=== PATIENT | male | born 1950 | race Caucasian/White ===

== ENCOUNTER 2017-07-31 06:54 | Emergency (ER) | payer OTHER ==
[~2017-07-31] VITALS: Ht 185.4 cm; Wt 100.0 kg
[~2017-07-31 06:54] MED LIST: 1-ME1LIQ PO; ALPR-138 PO; CYCL-36 PO; METO25CR PO; PRAD150C PO
[2017-07-31 07:00] VITALS: BP 182/99; PULSE 80; RESP 16; TEMP 98.6; O2SAT 96
[2017-07-31] MEDS ORDERED: SERT25TA83 PO (07:20)
[2017-07-31] MEDS ORDERED: ASPI-183 PO (07:20)
[2017-07-31] MEDS ORDERED: METO1TAB42 PO (07:20)
--- NOTE | 2017-07-31 07:20 | PD ---
HPI Chief Complaint: Nosebleed Time Seen by Provider: 07:09 Travel History International Travel<30 days: No Contact w/Intl Traveler<30days: No Traveled to known affect area: No History of Present Illness HPI 66-year-old male complains of nosebleed. Patient states that and nosebleed started this morning. Patient has history of recurrent nosebleeds in the past. Patient was seen by ENT in the past for nosebleed. Patient states that he did not have any cauterization procedure or nose packing in the past. Patient states that the nosebleed stopped spontaneously after a few minutes in the past. Patient has history of atrial fibrillation and on aspirin 325 mg daily. Patient has history hypertension. Patient denies any recent injury to the nose. Patient denies any headache. Patient denies any chest pain or shortness of breath. Patient denies abdominal pain. PFSH Past Medical History Hx Anticoagulant Therapy: Yes (ASA 325MG DAILY) Atrial Fibrillation: Yes Cardiovascular Problems: Yes (A-FIB) Social History Alcohol Use: No Tobacco Use: No Substance Use: No Allergies-Medications (Allergen,Severity, Reaction): Coded Allergies: alprazolam (Unverified Allergy, Severe, HAS AFIB, 07/31/17) clonazepam (Unverified Allergy, Severe, HAS AFIB, 07/31/17) clorazepate dipotassium (Unverified Allergy, Severe, HAS AFIB, 07/31/17) diazepam (Unverified Allergy, Severe, HAS AFIB, 07/31/17) lorazepam (Unverified Allergy, Severe, HAS AFIB, 07/31/17) metaxalone (Unverified Allergy, Severe, CAN'T REMEMBER, 07/31/17) midazolam (Unverified Allergy, Severe, HAS AFIB, 07/31/17) mirtazapine (Unverified Allergy, Severe, CAN'T REMEMBER, 07/31/17) oxazepam (Unverified Allergy, Severe, HAS AFIB, 07/31/17) prednisone (Unverified Allergy, Severe, PALPITATIONS, 07/31/17) temazepam (Unverified Allergy, Severe, HAS AFIB, 07/31/17) trazodone (Unverified Allergy, Severe, FEELS WIERD AND CHILLS, 07/31/17) citalopram (Unverified Allergy, Mild, 07/31/17) Reported Meds & Prescriptions Reported Meds & Active Scripts Active Reported Viagra (Sildenafil Citrate) 50 Mg Tab 50 Mg PO DAILY PRN Sertraline (Sertraline HCl) 25 Mg Tab 37.5 Mg PO DAILY Aspirin 325 Mg Tab 325 Mg PO HS Metoprolol Succinate ER 24 HR (Metoprolol Succinate) 25 Mg Tab 12.5 Mg PO DAILY Review of Systems General / Constitutional: No: Fever Eyes: No: Visual changes HENT: Positive: Nosebleed, No: Headaches Cardiovascular: No: Chest Pain or Discomfort Respiratory: No: Shortness of Breath Gastrointestinal: No: Abdominal Pain Genitourinary: No: Dysuria Musculoskeletal: No: Pain Skin: No Rash Neurologic: No: Weakness Psychiatric: No: Depression Endocrine: No: Polydipsia Hematologic/Lymphatic: No: Easy Bruising Physical Exam Narrative GENERAL: Well-nourished, well-developed patient. SKIN: Focused skin assessment warm/dry. HEAD: Normocephalic. EYES: No scleral icterus. No injection or drainage. NECK: Supple, trachea midline. No JVD or lymphadenopathy. CARDIOVASCULAR: Regular rate and rhythm without murmurs, gallops, or rubs. RESPIRATORY: Breath sounds equal bilaterally. No accessory muscle use. GASTROINTESTINAL: Abdomen soft, non-tender, nondistended. MUSCULOSKELETAL: No cyanosis, or edema. BACK: Nontender without obvious deformity. No CVA tenderness. Patient has mild oozing of blood on the right naris. Data Data Last Documented VS Vital Signs Date Time Temp Pulse Resp B/P (MAP) Pulse Ox O2 Delivery O2 Flow Rate FiO2 07/31/17 07:00 98.6 80 16 182/99 (126) 96 Room Air MDM Medical Decision Making Medical Screen Exam Complete: Yes Emergency Medical Condition: Yes Differential Diagnosis Differential diagnosis including epistaxis. Narrative Course 66-year-old male with nosebleed. History of recurrent nosebleed. Patient has history of atrial fibrillation on aspirin 325 mg daily. Pressure was applied to the right side the nose. Patient stopped bleeding in the ED. Patient was discharged. Diagnosis Primary Impression: Epistaxis Patient Instructions: General Instructions Additional Instructions: Follow-up with personal physician and ENT. Return if persistent bleeding. Med/Other Pt SpecificInfo: No Change to Meds Disposition: 01 DISCHARGE HOME Condition: Stable Wellington Alberto MD Jul 31, 2017 07:20
[2017-07-31] MEDS ORDERED: VIAG50TA PO (07:22)
== END 2017-07-31 08:42 | disposition home or self-care (01) ==
LOC: NEPC 06:54
DX: R04.0 Epistaxis (principal); I48.91 Unspecified atrial fibrillation; I10 Essential (primary) hypertension; Z79.82 Long term (current) use of aspirin
CPT/HCPCS: 99282

== ENCOUNTER 2017-11-13 09:59 | Emergency (ER) | payer OTHER ==
[~2017-11-13] VITALS: Ht 185.4 cm; Wt 100.0 kg
[~2017-11-13 09:59] MED LIST changes: -1-ME1LIQ PO; -ALPR-138 PO; +ASPI-183 PO; -CYCL-36 PO; +METO1TAB42 PO; -METO25CR PO; -PRAD150C PO; +SERT25TA83 PO; +VIAG50TA PO
[2017-11-13 10:11] VITALS: BP 147/84; PULSE 61; RESP 18; TEMP 98.3; O2SAT 98
[2017-11-13] MEDS ORDERED: PROPARACAINE HCL 0.5% OPHT SOLN 15 ML BTL EACH EYE ONE (11:00)
[2017-11-13] MEDS ORDERED: PROPARACAINE HCL 0.5% OPHT SOLN 15 ML BTL RIGHT EYE ONE (11:30)
--- NOTE | 2017-11-13 11:58 | PD ---
HPI Chief Complaint: Eye Problems/Injury Time Seen by Provider: 11:11 Travel History International Travel<30 days: No Contact w/Intl Traveler<30days: No Traveled to known affect area: No History of Present Illness HPI Patient is a 67-year-old male presenting to the emergency room for evaluation of right eye redness. Patient states it started 4 days ago, he reports occasional pain with eye movement. Patient reports clear tearing and slightly blurry vision which is worse in the morning. He denies any crusting, fever, chills, headache, contact lens use, foreign body sensation. Symptom onset was gradual, symptom severity is moderate, there are no alleviating factors. Patient has no pain at this time. 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 PFSH Past Medical History Hx Anticoagulant Therapy: Yes (ASA 325MG DAILY) Atrial Fibrillation: Yes Anxiety: Yes Cardiovascular Problems: Yes (A-FIB) Hypertension: Yes Respiratory: Yes (SLEEP APNEA ) Past Surgical History Thoracic Surgery: Yes (BRONCHIAL CYST REMOVAL ) Social History Alcohol Use: No Tobacco Use: No Substance Use: No Allergies-Medications (Allergen,Severity, Reaction): Coded Allergies: alprazolam (Unverified Allergy, Severe, HAS AFIB, 07/31/17) clonazepam (Unverified Allergy, Severe, HAS AFIB, 07/31/17) clorazepate dipotassium (Unverified Allergy, Severe, HAS AFIB, 07/31/17) diazepam (Unverified Allergy, Severe, HAS AFIB, 07/31/17) lorazepam (Unverified Allergy, Severe, HAS AFIB, 07/31/17) metaxalone (Unverified Allergy, Severe, CAN'T REMEMBER, 07/31/17) midazolam (Unverified Allergy, Severe, HAS AFIB, 07/31/17) mirtazapine (Unverified Allergy, Severe, CAN'T REMEMBER, 07/31/17) oxazepam (Unverified Allergy, Severe, HAS AFIB, 07/31/17) prednisone (Unverified Allergy, Severe, PALPITATIONS, 07/31/17) temazepam (Unverified Allergy, Severe, HAS AFIB, 07/31/17) trazodone (Unverified Allergy, Severe, FEELS WIERD AND CHILLS, 07/31/17) citalopram (Unverified Allergy, Mild, 07/31/17) Reported Meds & Prescriptions Reported Meds & Active Scripts Active Reported Viagra (Sildenafil Citrate) 50 Mg Tab 50 Mg PO DAILY PRN Sertraline (Sertraline HCl) 25 Mg Tab 37.5 Mg PO DAILY Aspirin 325 Mg Tab 325 Mg PO HS Metoprolol Succinate ER 24 HR (Metoprolol Succinate) 25 Mg Tab 12.5 Mg PO DAILY Review of Systems Except as stated in HPI: all other systems reviewed are Neg Eyes: Positive: Blurred Vision, Redness, Tearing Physical Exam Narrative GENERAL: Well-developed, well-nourished, alert male. Presenting in no acute distress. SKIN: Warm and dry. HEAD: Normocephalic. EYES: No scleral icterus. Diffuse injection to right eye. Extraocular movements are intact. Fluorescein eye exam revealed a corneal opacity at the 6 o'clock position. NECK: Supple, trachea midline. No JVD or lymphadenopathy. CARDIOVASCULAR: Regular rate and rhythm without murmurs, gallops, or rubs. RESPIRATORY: Breath sounds equal bilaterally. No accessory muscle use. GASTROINTESTINAL: Abdomen soft, non-tender, nondistended. MUSCULOSKELETAL: No cyanosis, or edema. BACK: Nontender without obvious deformity. No CVA tenderness. Data Data Last Documented VS Vital Signs Date Time Temp Pulse Resp B/P (MAP) Pulse Ox O2 Delivery O2 Flow Rate FiO2 11/13/17 10:11 98.3 61 18 147/84 (105) 98 Orders Orders Proparacaine 0.5% Opth Soln (Alcaine 0.5 (11/13/17 11:00) Proparacaine 0.5% Opth Soln (Alcaine 0.5 (11/13/17 11:30) [facility] Medical Decision Making Medical Screen Exam Complete: Yes Emergency Medical Condition: Yes Interpretation(s) Vital Signs Date Time Temp Pulse Resp B/P (MAP) Pulse Ox O2 Delivery O2 Flow Rate FiO2 11/13/17 10:11 98.3 61 18 147/84 (105) 98 Differential Diagnosis Blepharitis versus keratitis versus episcleritis versus iritis versus conjunctivitis versus other Narrative Course Patient is well-appearing 67-year-old male presenting for evaluation of right eye redness that started 4 days ago. Patient's vital signs are stable. Fluorescein exam revealed a 3 mm opacity at the 6 o'clock position on the cornea. There is increased fluorescein uptake at the 6 o'clock position on the sclera as well. Patient was seen and evaluated by my attending physician. Please see his note for lamp examination. Patient will be started on ketorolac eyedrops, he is to follow-up with Dr. Aviles on Thursday. He was given strict return precautions. Patient verbalized understanding of instructions. Patient stable for discharge. Diagnosis Primary Impression: Episcleritis of right eye Referrals: Marcia Aviles MD 3 days Call today to schedule follow-up appointment for Thursday. Notify office that you were in the emergency department and will refer to her. Additional Instructions: Follow-up with Dr. Aviles on Thursday, call the office today to schedule a follow- up appointment Use medication as needed and as directed Return to emergency department for any new or worsening symptoms Med/Other Pt SpecificInfo: Prescription(s) given Scripts Ketorolac Opth Drops (Ketorolac Opth Drops) 0.5% Drops 1 DROP RIGHT EYE QID Y for PAIN SCALE 1 TO 10, #5 ML 0 Refills Prov: Kristyn Terry 11/13/17 Disposition: 01 DISCHARGE HOME Condition: Stable Kristyn Terry Nov 13, 2017 11:58
[2017-11-13] MEDS ORDERED: KETO0.5S2 RIGHT EYE (13:22)
--- NOTE | 2017-11-13 13:22 | PD ---
Physical Exam Date Seen by Provider: Nov 13, 2017 Time Seen by Provider: 13:18 Narrative The patient is a 67-year-old male who is initially evaluated by the mid-level provider. Please refer to initial history, physical, diagnostic evaluation, and treatment modality plan. Data Data Last Documented VS Vital Signs Date Time Temp Pulse Resp B/P (MAP) Pulse Ox O2 Delivery O2 Flow Rate FiO2 11/13/17 10:11 98.3 61 18 147/84 (105) 98 Orders Orders Proparacaine 0.5% Opth Soln (Alcaine 0.5 (11/13/17 11:00) Proparacaine 0.5% Opth Soln (Alcaine 0.5 (11/13/17 11:30) MDM Medical Record Reviewed: Yes Supervised Visit with KARLO: Yes Differential Diagnosis Differential diagnosis includes colitis, episcleritis, glaucoma, iritis, uveitis , foreign body, corneal abrasion, corneal ulcer, keratitis. Narrative Course The patient's initial history and physical was performed by the mid-level provider. Please refer to initial history, physical, and diagnostic evaluated chin. The patient has 4 days of mild right eye irritation, redness, and watering. He denies any visual changes, states the irritation seems to wax and wane. He does have a history of blepharitis, but denies any history of glaucoma or keratitis. He denies any autoimmune disorders. The patient does no excessive tearing out of the eye, does were glasses. Vision out of the left eye was 20/20, out of the right eye was 20/30, out of both was 2015 with glasses intact. Visual exam reveals inflammation of the epidural sclerae or on the right, pupil is equal and round at 4 mm, brisk reactivity. No haziness to the cornea noted. One drop of proparacaine was applied to the right eye, fluorescein staining the eye was visualized under slit lamp. There is no visible ulcerations, abrasions, or haziness upon examination. The patient's episclera were engorged and prominent consistent with episcleritis. The patient is advised to follow-up with ophthalmology on Thursday. Artificial tears as needed, and said drops as needed. Diagnosis Primary Impression: Episcleritis of right eye Referrals: Marcia Aivles MD call for appointment Call for an appointment to be evaluated on Thursday. Additional Instruction: Medications as directed. Follow-up with ophthalmology. Return if symptoms worsen or progress. Med/Other Pt SpecificInfo: Prescription(s) given Disposition: 01 DISCHARGE HOME Condition: Stable Jensen Waldron MD Nov 13, 2017 13:22
== END 2017-11-13 13:35 | disposition home or self-care (01) ==
LOC: NEPE 09:59
DX: H15.101 Unspecified episcleritis, right eye (principal); I10 Essential (primary) hypertension; I48.91 Unspecified atrial fibrillation; F41.9 Anxiety disorder, unspecified; Z88.8 Allergy status to other drugs, medicaments and biological substances; Z79.899 Other long term (current) drug therapy
CPT/HCPCS: 99283